=== PATIENT | male | born 1950 | race Caucasian/White ===

== ENCOUNTER → 2017-05-13 | Outpatient (CLI) | payer OTHER ==
[~2017-05-13] MED LIST: ACTOS15 MG PO; ACTOS45 MG PO; AMARYL4 MG PO; AMLODIPINE-ATO1 EAC1 PO; ASPIRIN81 M1 PO; AZOR 10/40 M1 TABLET PO; AZOR 5/20 MG1 TABLET PO; BYDUREON P2 MG/0.65 SC; COLCHICINE0.6 M1 PO; CRESTOR10 MG PO; CRESTOR5 MG PO; ERGOCALCIF50000 UNIT PO; FUROSEMIDE40 MG PO; IRON160 M1 PO; IRON18 MG PO; IRON325 M1 PO; JANUMET 50/11 TABLET PO; LOPRESSOR25 MG PO; LOPRESSOR50 MG PO; LOVAZA1 GM PO; METFORMIN HCL1000 MG PO; NIACIN500 M1 PO; PROTONIX40 MG PO; SUCRALFATE1 GM PO; TOPROL XL50 MG PO; TRAMADOL HCL50 MG PO; ULORIC40 MG PO; ULORIC80 MG PO; VITAMIN D31000 UNI1 PO; VITAMIN D50000 UNI4 PO
[2017-05-13 09:25] LABS: EOSINOPHIL (%) 2.2 % (0-5); EOSINOPHIL COUNT 0.1 K/uL (0-0.3); HEMATOCRIT 27.4 % (38.0-50.0); IMMATURE GRANULOCYTE (%) 0.4 % (0.0-0.7); INSTRUMENT ABS NEUTROPHIL CT 3.1 K/uL; LYMPHOCYTE COUNT 0.6 K/uL (1.0-2.8); MCH 27.9 PG (29.0-34.0); MCHC 29.6 G/DL (30.0-36.0); MCV 94.5 FL (86-99); MEAN PLAT.VOLUME 10.3 uM^3 (9.0-12.4); MONOCYTE (%) 12.6 % (3-12); MONOCYTE COUNT 0.6 K/uL (0-0.8); NEUTROPHIL (%) 70.3 % (45-76); NEUTROPHIL COUNT 3.1 K/uL (1.8-6.4); PLATELET COUNT 206 K/uL (156-360); RBC DIS.WIDTH-CV 13.8 % (11.8-14.6); RBC DIS.WIDTH-SD 47.6 % (39-53); WHITE BLOOD COUNT 4.5 K/uL (4.1-10.2)
[2017-05-13 09:32] LABS: INTER. NORMALIZED RATIO 1.1; PROTHROMBIN TIME 12.9 SEC (10.2-12.9)
[2017-05-13 09:35] LABS: PTT 29.9 SEC (25-37)
[2017-05-13 09:44] LABS: POINT-OF-CARE METER ID UU14174212
[2017-05-15 16:21] LABS: CLINICAL INFORMATION ANEMIA; NUMBER OF MARKERS 22; SPECIMEN VIABILITY 98
== END | disposition home or self-care (01) ==
LOC: OPR 08:47 → EDSTATUS 09:00
PROVIDERS: Internal Medicine Hematology & Oncology
PROC: 07DR3ZX Extraction of Iliac Bone Marrow, Percutaneous Approach, Diagnostic (ICD-10-PCS; principal; 2017-05-13)
DX: D64.9 Anemia, unspecified (principal); E11.9 Type 2 diabetes mellitus without complications; I10 Essential (primary) hypertension; G47.33 Obstructive sleep apnea (adult) (pediatric); I25.10 Atherosclerotic heart disease of native coronary artery without angina pectoris; Z95.5 Presence of coronary angioplasty implant and graft; Z80.0 Family history of malignant neoplasm of digestive organs; Z87.891 Personal history of nicotine dependence; M10.9 Gout, unspecified
CPT/HCPCS: 77012; 82948; 85025; 85610; 85730; J3010

== ENCOUNTER 2017-07-17 05:24 | Inpatient (IN) | payer OTHER ==
[2017-07-17] VITALS (9 sets, daily range): BP systolic 11–148; BP diastolic 48–82
[~2017-07-17] VITALS: Ht 177.8 cm; Wt 156.0 kg
[~2017-07-17 05:24] MED LIST changes: +AMARYL2 MG PO; +LISINOPRIL40 MG PO
[2017-07-17 05:55] LABS: BASE EXCESS 1.7 mEq/L (-3 to +3); BICARBONATE 27.6 mEq/L (22-26); CARBOXY HGB 2.3 % (0-5); COMMENTS - BLOOD GASES C+A+; DEVICE NIV; FI02 60 %; METHEMOGLOBIN 0.7 % (0-1.5); MODE SPONT; PCO2 50 mm Hg (35-45); PO2 135 mm Hg (80-100); SITE LR; TOTAL RESP RATE 22 resp/min; pH 7.35 (7.35-7.45)
[2017-07-17 05:56] LABS: PEEP 7 CM/H20; PRES. SUPPORT 10 CM/H2O
[2017-07-17 06:11] LABS: CARBON DIOXIDE (BICARBONATE) 28.5 MEQ/L (20-31)
[2017-07-17 06:17] LABS: HEMATOCRIT 22.1 % (38.0-50.0); MCH 27.4 PG (29.0-34.0); MCHC 28.5 G/DL (30.0-36.0); MCV 96.1 FL (86-99); PLATELET COUNT 202 K/uL (156-360); RBC DIS.WIDTH-CV 15.1 % (11.8-14.6); RBC DIS.WIDTH-SD 52.3 % (39-53); WHITE BLOOD COUNT 6.2 K/uL (4.1-10.2)
[2017-07-17 06:20] LABS: HEMOGLOBIN 6.3 G/DL (12.5-16.6)
[2017-07-17 06:23] LABS: CHLORIDE 106 mEq/L (99-109); POTASSIUM 4.8 mEq/L (3.7-5.4); SODIUM 140 mEq/L (136-147)
[2017-07-17 06:25] LABS: GLUCOSE 208 mg/dL (70-99)
[2017-07-17 06:29] LABS: CREATININE 1.6 mg/dL (0.6-1.3); GFR ESTIMATE (CALCULATED) 46 mL/min/ (58.99-99999)
[2017-07-17 06:31] LABS: UREA NITROGEN (BUN) 31 mg/dL (9-23)
[2017-07-17 06:49] LABS: TROP-I INTERPRETATION NEGATIVE; TROPONIN-I 0.18 ng/mL (0.0-0.30)
[2017-07-17] MEDS ORDERED: IRON325 M1 PO (08:47)
[2017-07-17] MEDS ORDERED: ZYLOPRIM100 MG PO (08:49)
[2017-07-17] MEDS ORDERED: AMLODIPINE-OLM1 EACH PO (08:51)
[2017-07-17 13:03] LABS: TROP-I INTERPRETATION POSITIVE; TROPONIN-I 0.73 ng/mL (0.0-0.30)
[2017-07-17 20:11] LABS: TROP-I INTERPRETATION INDETERMINATE; TROPONIN-I 0.41 ng/mL (0.0-0.30)
[2017-07-18 00:15] VITALS: BP 144/69
[2017-07-18 04:30] VITALS: BP 118/58
[2017-07-18 05:42] LABS: HEMATOCRIT 26.8 % (38.0-50.0); HEMOGLOBIN 7.8 G/DL (12.5-16.6); MCH 27.2 PG (29.0-34.0); MCHC 29.1 G/DL (30.0-36.0); MCV 93.4 FL (86-99); PLATELET COUNT 243 K/uL (156-360); RBC DIS.WIDTH-CV 14.8 % (11.8-14.6); RBC DIS.WIDTH-SD 50.6 % (39-53)
[2017-07-18 05:59] LABS: RED BLOOD COUNT 2.87 M/uL (4.00-5.50)
[2017-07-18 06:31] LABS: CHLORIDE 99 MEQ/L (99-109); CREATININE 1.6 MG/DL (0.6-1.3); GFR ESTIMATE (CALCULATED) 46 mL/min/ (58.99-99999); GLUCOSE 274 mg/dL (70-99); POTASSIUM 4.7 MEQ/L (3.7-5.4); SODIUM 137 MEQ/L (136-147); UREA NITROGEN (BUN) 33 mg/dL (9-23)
[2017-07-18 08:21] VITALS: BP 156/80
[2017-07-18 15:20] VITALS: BP 124/58
[2017-07-18 17:21] LABS: HEMATOCRIT 27.6 % (38.0-50.0); HEMOGLOBIN 8.1 G/DL (12.5-16.6); MCV 93.6 FL (86-99)
[2017-07-18 19:47] VITALS: BP 139/65
[2017-07-18 23:30] VITALS: BP 133/52
[2017-07-19 04:44] VITALS: BP 137/75
[2017-07-19 08:20] VITALS: BP 166/95
[2017-07-19 09:13] LABS: HEMATOCRIT 30.8 % (38.0-50.0); MCH 27.5 PG (29.0-34.0); MCHC 29.2 G/DL (30.0-36.0); MCV 94.2 FL (86-99); PLATELET COUNT 293 K/uL (156-360); RBC DIS.WIDTH-SD 50.8 % (39-53); RED BLOOD COUNT 3.27 M/uL (4.00-5.50); WHITE BLOOD COUNT 11.7 K/uL (4.1-10.2)
[2017-07-19 09:39] LABS: CHLORIDE 97 MEQ/L (99-109); CREATININE 1.4 MG/DL (0.6-1.3); GFR ESTIMATE (CALCULATED) 54 mL/min/ (58.99-99999); GLUCOSE 255 mg/dL (70-99); POTASSIUM 4.7 MEQ/L (3.7-5.4); SODIUM 136 MEQ/L (136-147); UREA NITROGEN (BUN) 46 mg/dL (9-23)
[2017-07-19 11:11] VITALS: BP 138/64
[2017-07-19 16:15] VITALS: BP 173/82
[2017-07-19 19:13] VITALS: BP 147/65
[2017-07-19 23:46] VITALS: BP 138/75
[2017-07-20 04:09] VITALS: BP 141/75
[2017-07-20 08:30] VITALS: BP 165/77
[2017-07-20 09:55] LABS: HEMATOCRIT 30.3 % (38.0-50.0); MCH 27.2 PG (29.0-34.0); MCHC 29.7 G/DL (30.0-36.0); MCV 91.5 FL (86-99); PLATELET COUNT 262 K/uL (156-360); RBC DIS.WIDTH-CV 14.4 % (11.8-14.6); RED BLOOD COUNT 3.31 M/uL (4.00-5.50); WHITE BLOOD COUNT 8.1 K/uL (4.1-10.2)
[2017-07-20 10:31] LABS: CHLORIDE 97 MEQ/L (99-109); CREATININE 1.2 MG/DL (0.6-1.3); GFR ESTIMATE (CALCULATED) > 59 mL/min/ (58.99-99999); GLUCOSE 227 mg/dL (70-99); POTASSIUM 4.4 MEQ/L (3.7-5.4); SODIUM 137 MEQ/L (136-147); UREA NITROGEN (BUN) 42 mg/dL (9-23)
[2017-07-20 12:04] VITALS: BP 158/86
[2017-07-20 12:33] LABS: HEMOGLOBIN A1c (GLYCOHEMOGLOB) 5.1 % (Below 5.7)
[2017-07-20] MEDS ORDERED: FUROSEMIDE40 MG PO (13:54)
[2017-07-20] MEDS ORDERED: LEVEMIR FL100 UNIT/1 SC ×2 (13:54→15:09)
[2017-07-20] MEDS ORDERED: DUONEB 2.5-0.5 M3 ML AEROSOL (13:54)
[2017-07-20] MEDS ORDERED: PREDNISONE10 MG PO (13:54)
[2017-07-20] MEDS ORDERED: LEVOFLOXACIN750 MG PO (13:54)
[2017-07-20] MEDS ORDERED: SPIRIVA1 INHALATI IH (13:54)
== END 2017-07-20 18:47 | disposition home or self-care (01) | DRG 189 ==
LOC: EME → EDBD 05:24 → EDOF 08:07 → 4EAST 08:07 → ENRESERV 08:08 → 4EAST 12:14 → ENRESERV 07-18 11:45 → CANRESERV 07-18 11:45 → ENPENDDIS 07-20 → 4EAST 07-20 18:47
PROVIDERS: Emergency Medicine; Internal Medicine
DX: J96.01 Acute respiratory failure with hypoxia (principal); J44.1 Chronic obstructive pulmonary disease with (acute) exacerbation; J44.0 Chronic obstructive pulmonary disease with (acute) lower respiratory infection; J20.9 Acute bronchitis, unspecified; I21.4 Non-ST elevation (NSTEMI) myocardial infarction; I11.0 Hypertensive heart disease with heart failure; I50.33 Acute on chronic diastolic (congestive) heart failure; K55.21 Angiodysplasia of colon with hemorrhage; D62 Acute posthemorrhagic anemia; Z99.81 Dependence on supplemental oxygen; E66.01 Morbid (severe) obesity due to excess calories; Z68.42 Body mass index [BMI] 45.0-49.9, adult; K22.10 Ulcer of esophagus without bleeding; D50.0 Iron deficiency anemia secondary to blood loss (chronic); K29.60 Other gastritis without bleeding; K31.819 Angiodysplasia of stomach and duodenum without bleeding; I35.0 Nonrheumatic aortic (valve) stenosis; G47.33 Obstructive sleep apnea (adult) (pediatric); I25.10 Atherosclerotic heart disease of native coronary artery without angina pectoris; E11.9 Type 2 diabetes mellitus without complications; E78.5 Hyperlipidemia, unspecified; M10.9 Gout, unspecified; Z80.0 Family history of malignant neoplasm of digestive organs; Z87.891 Personal history of nicotine dependence; Z95.1 Presence of aortocoronary bypass graft; Z95.5 Presence of coronary angioplasty implant and graft
CPT/HCPCS: 36600; 71045; 80048; 82803; 82948; 83036; 83605; 83880; 84484; 85014; 85018; 85027; 86850; 86900; 86901; 86920; 87040; 87070; 87205; 93005; 93306; 94002; 94640; 94640 76; 94660; 94760; 94799; 99202; 99281; 99285; J1100; J1644; J1815; J1940; J1956; J2930; J7512; J7644; P9016

== ENCOUNTER 2017-09-06 14:14 | Inpatient (IN) | payer OTHER ==
[~2017-09-06] VITALS: Ht 177.8 cm; Wt 150.1 kg
[~2017-09-06 14:14] MED LIST changes: +AMLODIPINE-OLM1 EACH PO; +DUONEB 2.5-0.5 M3 ML AEROSOL; +LEVEMIR FL100 UNIT/1 SC; +LEVOFLOXACIN750 MG PO; +PREDNISONE10 MG PO; +SPIRIVA1 INHALATI IH; +ZYLOPRIM100 MG PO
[2017-09-06 14:59] LABS: CHLORIDE 104 mEq/L (99-109); POTASSIUM 4.4 mEq/L (3.7-5.4); SODIUM 138 mEq/L (136-147)
[2017-09-06 15:00] LABS: GLUCOSE 172 mg/dL (70-99)
[2017-09-06 15:04] LABS: CREATININE 1.4 mg/dL (0.6-1.3); GFR ESTIMATE (CALCULATED) 54 mL/min/ (58.99-99999)
[2017-09-06 15:05] LABS: UREA NITROGEN (BUN) 34 mg/dL (9-23)
[2017-09-06 16:35] LABS: HEMATOCRIT 18.4 % (38.0-50.0); MCH 25.3 PG (29.0-34.0); MCHC 29.9 G/DL (30.0-36.0); MCV 84.8 FL (86-99); PLATELET COUNT 216 K/uL (156-360); RBC DIS.WIDTH-CV 15.3 % (11.8-14.6); RED BLOOD COUNT 2.17 M/uL (4.00-5.50); WHITE BLOOD COUNT 4.4 K/uL (4.1-10.2)
[2017-09-06 16:36] LABS: HEMOGLOBIN 5.5 G/DL (12.5-16.6)
[2017-09-06] MEDS ORDERED: LASIX40 MG PO (18:05)
[2017-09-06] MEDS ORDERED: LOPRESSOR25 MG PO (18:06)
[2017-09-06] MEDS ORDERED: AZOR 5/20 MG1 TABLET PO (18:08)
[2017-09-06] MEDS ORDERED: ALLOPURINOL100 MG PO (18:10)
[2017-09-06] MEDS ORDERED: SPIRIVA18 MCG IH (18:11)
[2017-09-06] MEDS ORDERED: LEVEMIR FL100 UNIT/1 SC ×2 (18:14→18:15)
[2017-09-06 21:43] VITALS: BP 139/69
[2017-09-06] MEDS ORDERED: VITAMIN B-121000 MC4 SL (23:15)
[2017-09-07] VITALS (11 sets, daily range): BP systolic 107–139; BP diastolic 50–73
[2017-09-07 06:10] LABS: HEMATOCRIT 20.1 % (38.0-50.0); MCH 26.4 PG (29.0-34.0); MCHC 30.3 G/DL (30.0-36.0); PLATELET COUNT 184 K/uL (156-360); RBC DIS.WIDTH-CV 15.5 % (11.8-14.6); RBC DIS.WIDTH-SD 49.4 % (39-53); RED BLOOD COUNT 2.31 M/uL (4.00-5.50); WHITE BLOOD COUNT 4.1 K/uL (4.1-10.2)
[2017-09-07 06:12] LABS: HEMOGLOBIN 6.1 G/DL (12.5-16.6)
[2017-09-07 09:20] LABS: ALBUMIN 3.5 G/DL (3.2-4.8); ALKALINE PHOSPHATASE 48 IU/L (3-129); ALT (GPT) 11 IU/L (3-49); AST (GOT) 20 IU/L (2-34); CHLORIDE 106 MEQ/L (99-109); CREATININE 1.2 MG/DL (0.6-1.3); GFR ESTIMATE (CALCULATED) > 59 mL/min/ (58.99-99999); GLUCOSE 124 mg/dL (70-99); POTASSIUM 4.3 MEQ/L (3.7-5.4); SODIUM 141 MEQ/L (136-147); TOTAL BILIRUBIN 0.7 MG/DL (0.0-1.0); TOTAL PROTEIN 5.4 G/DL (6.4-8.3); UREA NITROGEN (BUN) 31 mg/dL (9-23)
[2017-09-07 10:19] LABS: TROP-I INTERPRETATION NEGATIVE; TROPONIN-I 0.13 ng/mL (0.0-0.30)
[2017-09-07 21:04] LABS: HEMATOCRIT 26.8 % (38.0-50.0); HEMOGLOBIN 8.2 G/DL (12.5-16.6); MCV 86.2 FL (86-99)
[2017-09-08] VITALS (9 sets, daily range): BP systolic 117–139; BP diastolic 56–67
[2017-09-08 03:36] LABS: BASOPHIL (%) 0.6 % (0-1); EOSINOPHIL (%) 2.9 % (0-5); EOSINOPHIL COUNT 0.2 K/uL (0-0.3); HEMATOCRIT 27.9 % (38.0-50.0); HEMOGLOBIN 8.7 G/DL (12.5-16.6); IMMATURE GRANULOCYTE (%) 0.2 % (0.0-0.7); LYMPHOCYTE (%) 10.4 % (15-42); LYMPHOCYTE COUNT 0.5 K/uL (1.0-2.8); MCH 26.7 PG (29.0-34.0); MCHC 31.2 G/DL (30.0-36.0); MCV 85.6 FL (86-99); MONOCYTE (%) 15.2 % (3-12); MONOCYTE COUNT 0.8 K/uL (0-0.8); NEUTROPHIL (%) 70.7 % (45-76); NEUTROPHIL COUNT 3.7 K/uL (1.8-6.4); PLATELET COUNT 198 K/uL (156-360); RBC DIS.WIDTH-SD 47.1 % (39-53); WHITE BLOOD COUNT 5.2 K/uL (4.1-10.2)
[2017-09-08 03:44] LABS: RED BLOOD COUNT 3.26 M/uL (4.00-5.50)
[2017-09-08 03:46] LABS: CHLORIDE 105 mEq/L (99-109); POTASSIUM 4.4 mEq/L (3.7-5.4); SODIUM 141 mEq/L (136-147)
[2017-09-08 03:47] LABS: GLUCOSE 102 mg/dL (70-99)
[2017-09-08 03:51] LABS: CREATININE 1.2 mg/dL (0.6-1.3); GFR ESTIMATE (CALCULATED) > 59 mL/min/ (58.99-99999)
[2017-09-08 03:52] LABS: UREA NITROGEN (BUN) 26 mg/dL (9-23)
[2017-09-09 00:50] LABS: HEMATOCRIT 31.2 % (38.0-50.0); HEMOGLOBIN 9.7 G/DL (12.5-16.6)
[2017-09-09 00:58] LABS: CHLORIDE 103 mEq/L (99-109); POTASSIUM 4.1 mEq/L (3.7-5.4); SODIUM 139 mEq/L (136-147)
[2017-09-09 00:59] LABS: MAGNESIUM 1.7 mg/dL (1.3-2.7)
[2017-09-09 01:00] LABS: GLUCOSE 75 mg/dL (70-99)
[2017-09-09 01:04] LABS: CREATININE 1.2 mg/dL (0.6-1.3); GFR ESTIMATE (CALCULATED) > 59 mL/min/ (58.99-99999); PHOSPHORUS 4.9 mg/dL (2.5-4.9)
[2017-09-09 01:05] LABS: UREA NITROGEN (BUN) 20 mg/dL (9-23)
[2017-09-09 03:46] VITALS: BP 116/58
[2017-09-09 06:21] LABS: HEMATOCRIT 28.8 % (38.0-50.0); HEMOGLOBIN 8.8 G/DL (12.5-16.6); MCH 26.7 PG (29.0-34.0); MCHC 30.6 G/DL (30.0-36.0); MCV 87.3 FL (86-99); PLATELET COUNT 191 K/uL (156-360); RBC DIS.WIDTH-CV 15.4 % (11.8-14.6); RBC DIS.WIDTH-SD 49.2 % (39-53); WHITE BLOOD COUNT 4.7 K/uL (4.1-10.2)
[2017-09-09 07:08] VITALS: BP 124/67
[2017-09-09] MEDS ORDERED: FLUCONAZOLE100 MG PO (11:06)
== END 2017-09-09 13:12 | disposition home or self-care (01) | DRG 812 ==
LOC: EME 14:14 → EDOF 19:54 → 5SOUTH 19:54 → ENRESERV 19:55 → 5SOUTH 21:04
PROVIDERS: Emergency Medicine; Hospitalist; Physician Assistant; Specialist
PROC: 30233N1 Transfusion of Nonautologous Red Blood Cells into Peripheral Vein, Percutaneous Approach (ICD-10-PCS; principal; 2017-09-06)
PROC: 5A09357 Assistance with Respiratory Ventilation, Less than 24 Consecutive Hours, Continuous Positive Airway Pressure (ICD-10-PCS; 2017-09-07)
PROC: 0D568ZZ Destruction of Stomach, Via Natural or Artificial Opening Endoscopic (ICD-10-PCS; 2017-09-08)
DX: D64.9 Anemia, unspecified (principal); I10 Essential (primary) hypertension; E78.5 Hyperlipidemia, unspecified; E11.9 Type 2 diabetes mellitus without complications; M10.9 Gout, unspecified; G47.33 Obstructive sleep apnea (adult) (pediatric); E66.9 Obesity, unspecified; I35.0 Nonrheumatic aortic (valve) stenosis; K31.819 Angiodysplasia of stomach and duodenum without bleeding; K55.20 Angiodysplasia of colon without hemorrhage; I25.2 Old myocardial infarction; Z68.42 Body mass index [BMI] 45.0-49.9, adult; B37.81 Candidal esophagitis; K25.9 Gastric ulcer, unspecified as acute or chronic, without hemorrhage or perforation; J44.9 Chronic obstructive pulmonary disease, unspecified
CPT/HCPCS: 36415; 80048; 80048 91; 80053; 82948; 83010 90; 83615; 83735; 84100; 84484; 85014; 85018; 85025; 85025 91; 85027; 85027 GA; 85046; 86850; 86880; 86900; 86901; 86920; 93005; 94640; 94640 76; 94660; 99281; 99285; J0330; J1815; J1940; J2405; J3010; P9016

== ENCOUNTER 2018-01-06 00:37 | Inpatient (IN) | payer OTHER ==
[~2018-01-06] VITALS: Ht 177.8 cm; Wt 141.7 kg
[2018-01-06] VITALS (15 sets, daily range): BP systolic 101–133; BP diastolic 56–69
[~2018-01-06 00:37] MED LIST changes: +ALLOPURINOL100 MG PO; +FLUCONAZOLE100 MG PO; +GLUCOPHAGE XR,500 MG PO; +LASIX40 MG PO; +MICRONASE2.5 MG PO; +NORVASC5 MG PO; +SPIRIVA RESPIMAT4 GM IH; +VASCEPA1 GM PO; +VITAMIN B-121000 MC4 SL; -ZYLOPRIM100 MG PO
[2018-01-06] MEDS ORDERED: ACTOS45 MG PO (01:02)
[2018-01-06] MEDS ORDERED: AZOR 5/20 MG1 TABLET PO (01:03)
[2018-01-06] MEDS ORDERED: FENOFIBRATE160 M1 PO (01:03)
[2018-01-06] MEDS ORDERED: AMARYL2 MG PO (01:03)
[2018-01-06] MEDS ORDERED: ALBUTEROL2.5 MG/3 M IH (01:04)
[2018-01-06] MEDS ORDERED: IRON325 M1 PO (01:05)
[2018-01-06 01:39] LABS: COMMENTS - BLOOD GASES C+; DEVICE VENT; SITE RR
[2018-01-06 01:40] LABS: FI02 50 %; MODE SPONT; PCO2 39 mm Hg (35-45); PEEP 5 CM/H20; PO2 114 mm Hg (80-100); PRES. SUPPORT 8 CM/H2O; pH 7.39 (7.35-7.45)
[2018-01-06 01:41] LABS: BICARBONATE 23.6 mEq/L (22-26); CARBOXY HGB 2.8 % (0-5); METHEMOGLOBIN 0.4 % (0-1.5); O2 SATURATION (CALCULATED) 99.6 % (95-99)
[2018-01-06 01:42] LABS: BASE EXCESS -1.2 mEq/L (-3 to +3)
[2018-01-06 02:14] LABS: HEMATOCRIT 20.4 % (38.0-50.0); HEMOGLOBIN 6.1 G/DL (12.5-16.6); MCHC 29.9 G/DL (30.0-36.0); MCV 93.6 FL (86-99); PLATELET COUNT 231 K/uL (156-360); RBC DIS.WIDTH-CV 20.6 % (11.8-14.6); RBC DIS.WIDTH-SD 69.7 % (39-53); RED BLOOD COUNT 2.18 M/uL (4.00-5.50); WHITE BLOOD COUNT 6.7 K/uL (4.1-10.2)
[2018-01-06 02:36] LABS: TROP-I INTERPRETATION POSITIVE; TROPONIN-I 0.85 ng/mL (0.0-0.30)
[2018-01-06 02:38] LABS: ALBUMIN 3.9 G/DL (3.2-4.8); ALKALINE PHOSPHATASE 64 IU/L (3-129); ALT (GPT) 12 IU/L (3-49); AST (GOT) 26 IU/L (2-34); CHLORIDE 104 MEQ/L (99-109); CREATININE 1.6 MG/DL (0.6-1.3); GFR ESTIMATE (CALCULATED) 46 mL/min/ (58.99-99999); GLUCOSE 258 mg/dL (70-99); POTASSIUM 4.6 MEQ/L (3.7-5.4); SODIUM 138 MEQ/L (136-147); TOTAL BILIRUBIN 0.8 MG/DL (0.0-1.0); TOTAL PROTEIN 6.5 G/DL (6.4-8.3); UREA NITROGEN (BUN) 29 mg/dL (9-23)
[2018-01-06 02:39] LABS: COMMENT A; LIPASE 88 U/L (1.0-51.0)
[2018-01-06 06:12] LABS: CHLORIDE 103 MEQ/L (99-109); CREATININE 1.4 MG/DL (0.6-1.3); GFR ESTIMATE (CALCULATED) 53 mL/min/ (58.99-99999); GLUCOSE 287 mg/dL (70-99); POTASSIUM 5.1 MEQ/L (3.7-5.4); SODIUM 137 MEQ/L (136-147); UREA NITROGEN (BUN) 32 mg/dL (9-23)
[2018-01-06 08:26] LABS: TROP-I INTERPRETATION POSITIVE; TROPONIN-I 2.22 ng/mL (0.0-0.30)
[2018-01-06 10:25] LABS: HEMATOCRIT 23.4 % (38.0-50.0); HEMOGLOBIN 6.9 G/DL (12.5-16.6); MCV 92.9 FL (86-99)
[2018-01-06 15:07] LABS: TROP-I INTERPRETATION POSITIVE; TROPONIN-I 3.66 ng/mL (0.0-0.30)
[2018-01-06 16:41] LABS: MCV 90.9 FL (86-99)
[2018-01-06 17:13] LABS: TROP-I INTERPRETATION POSITIVE; TROPONIN-I 3.85 ng/mL (0.0-0.30)
[2018-01-07] VITALS (13 sets, daily range): BP systolic 98–166; BP diastolic 56–86
[2018-01-07 03:36] LABS: BASOPHIL (%) 0.1 % (0-1); EOSINOPHIL (%) 0.1 % (0-5); HEMATOCRIT 27.1 % (38.0-50.0); HEMOGLOBIN 8.6 G/DL (12.5-16.6); IMMATURE GRANULOCYTE (%) 0.4 % (0.0-0.7); LYMPHOCYTE (%) 2.4 % (15-42); LYMPHOCYTE COUNT 0.3 K/uL (1.0-2.8); MCH 28.6 PG (29.0-34.0); MCHC 31.7 G/DL (30.0-36.0); MONOCYTE (%) 10.2 % (3-12); MONOCYTE COUNT 1.1 K/uL (0-0.8); NEUTROPHIL (%) 86.8 % (45-76); NEUTROPHIL COUNT 9.7 K/uL (1.8-6.4); PLATELET COUNT 263 K/uL (156-360); RBC DIS.WIDTH-CV 19.8 % (11.8-14.6); RBC DIS.WIDTH-SD 64.4 % (39-53); WHITE BLOOD COUNT 11.2 K/uL (4.1-10.2)
[2018-01-07 03:43] LABS: RED BLOOD COUNT 3.01 M/uL (4.00-5.50)
[2018-01-07 03:58] LABS: TROP-I INTERPRETATION POSITIVE
[2018-01-07 04:02] LABS: TROPONIN-I 3.68 ng/mL (0.0-0.30)
[2018-01-07 09:09] LABS: CHLORIDE 103 mEq/L (99-109); POTASSIUM 4.8 mEq/L (3.7-5.4); SODIUM 138 mEq/L (136-147)
[2018-01-07 09:11] LABS: GLUCOSE 214 mg/dL (70-99)
[2018-01-07 09:15] LABS: CREATININE 1.5 mg/dL (0.6-1.3); GFR ESTIMATE (CALCULATED) 49 mL/min/ (58.99-99999)
[2018-01-07 09:16] LABS: UREA NITROGEN (BUN) 39 mg/dL (9-23)
[2018-01-07 10:13] LABS: CARBOXY HGB 2.8 % (0-5); METHEMOGLOBIN 0.7 % (0-1.5); PCO2 41 mm Hg (35-45); PO2 48 mm Hg (80-100)
[2018-01-07 10:14] LABS: BASE EXCESS 0.5 mEq/L (-3 to +3); BICARBONATE 25.4 mEq/L (22-26); DEVICE HFNC; O2 FLOW 6 L/MIN; SITE LR
[2018-01-07 10:15] LABS: COMMENTS - BLOOD GASES A+C+
[2018-01-07 18:05] LABS: HEMATOCRIT 28.9 % (38.0-50.0); HEMOGLOBIN 8.9 G/DL (12.5-16.6)
[2018-01-08 03:41] VITALS: BP 137/78
[2018-01-08 05:38] LABS: BASOPHIL (%) 0 % (0-1); EOSINOPHIL (%) 0 % (0-5); HEMATOCRIT 27.3 % (38.0-50.0); HEMOGLOBIN 8.3 G/DL (12.5-16.6); IMMATURE GRANULOCYTE (%) 0.5 % (0.0-0.7); LYMPHOCYTE (%) 2.6 % (15-42); LYMPHOCYTE COUNT 0.2 K/uL (1.0-2.8); MCH 27.2 PG (29.0-34.0); MCHC 30.4 G/DL (30.0-36.0); MCV 89.5 FL (86-99); MONOCYTE (%) 2.4 % (3-12); MONOCYTE COUNT 0.2 K/uL (0-0.8); NEUTROPHIL (%) 94.5 % (45-76); NEUTROPHIL COUNT 5.8 K/uL (1.8-6.4); PLATELET COUNT 209 K/uL (156-360); RBC DIS.WIDTH-CV 18.5 % (11.8-14.6); RBC DIS.WIDTH-SD 61.6 % (39-53); RED BLOOD COUNT 3.05 M/uL (4.00-5.50); WHITE BLOOD COUNT 6.2 K/uL (4.1-10.2)
[2018-01-08 06:03] LABS: CHLORIDE 99 MEQ/L (99-109); CREATININE 1.4 MG/DL (0.6-1.3); GFR ESTIMATE (CALCULATED) 53 mL/min/ (58.99-99999); POTASSIUM 5.1 MEQ/L (3.7-5.4); SODIUM 137 MEQ/L (136-147); UREA NITROGEN (BUN) 42 mg/dL (9-23)
[2018-01-08 06:18] LABS: GLUCOSE 374 mg/dL (70-99)
[2018-01-08 08:11] VITALS: BP 140/67
[2018-01-08 11:28] VITALS: BP 131/61
[2018-01-08 20:08] VITALS: BP 115/56
[2018-01-08 21:07] VITALS: BP 128/56
[2018-01-08 23:40] VITALS: BP 133/64
[2018-01-09 04:05] VITALS: BP 120/56
[2018-01-09 05:29] LABS: HEMATOCRIT 26.5 % (38.0-50.0); HEMOGLOBIN 8.1 G/DL (12.5-16.6); MCH 27.5 PG (29.0-34.0); MCHC 30.6 G/DL (30.0-36.0); MCV 89.8 FL (86-99); PLATELET COUNT 226 K/uL (156-360); RBC DIS.WIDTH-CV 18.1 % (11.8-14.6); RBC DIS.WIDTH-SD 60.1 % (39-53); RED BLOOD COUNT 2.95 M/uL (4.00-5.50); WHITE BLOOD COUNT 7.5 K/uL (4.1-10.2)
[2018-01-09 07:51] VITALS: BP 119/69
[2018-01-09 11:25] VITALS: BP 119/67
[2018-01-09 15:37] VITALS: BP 149/69
[2018-01-09 20:38] VITALS: BP 136/64
[2018-01-09 23:44] VITALS: BP 145/66
[2018-01-10 03:35] VITALS: BP 122/58
[2018-01-10 07:12] VITALS: BP 134/60
[2018-01-10 11:17] VITALS: BP 133/83
[2018-01-10] MEDS ORDERED: CRESTOR10 MG PO (12:09)
[2018-01-10] MEDS ORDERED: PROTONIX40 MG PO (12:15)
[2018-01-10] MEDS ORDERED: PREDNISONE5 MG PO (12:17)
[2018-01-10] MEDS ORDERED: LOPRESSOR25 MG PO (12:20)
[2018-01-31] MEDS ORDERED: AMLODIPINE-BEN1 EAC3 PO (14:37)
[2018-01-31] MEDS ORDERED: PROTONIX40 MG PO (14:39)
[2018-01-31] MEDS ORDERED: CRESTOR10 MG PO (15:13)
== END 2018-01-10 14:23 | disposition home or self-care (01) | DRG 280 ==
LOC: EME 00:37 → EDOF 02:47 → 4EAST 02:47 → ENRESERV 02:49 → 4EAST 04:31 → ENPENDDIS 01-10 → 4EAST 01-10 14:23
PROVIDERS: Emergency Medicine; Hospitalist; Internal Medicine; Internal Medicine Cardiovascular Disease; Internal Medicine Gastroenterology
DX: I21.4 Non-ST elevation (NSTEMI) myocardial infarction (principal); J96.01 Acute respiratory failure with hypoxia; J44.1 Chronic obstructive pulmonary disease with (acute) exacerbation; N17.9 Acute kidney failure, unspecified; J81.0 Acute pulmonary edema; D62 Acute posthemorrhagic anemia; I95.9 Hypotension, unspecified; K55.21 Angiodysplasia of colon with hemorrhage; I12.9 Hypertensive chronic kidney disease with stage 1 through stage 4 chronic kidney disease, or unspecified chronic kidney disease; N18.3 Chronic kidney disease, stage 3 (moderate); E11.22 Type 2 diabetes mellitus with diabetic chronic kidney disease; I25.10 Atherosclerotic heart disease of native coronary artery without angina pectoris; I35.0 Nonrheumatic aortic (valve) stenosis; E66.01 Morbid (severe) obesity due to excess calories; Z68.42 Body mass index [BMI] 45.0-49.9, adult; I25.2 Old myocardial infarction; Z95.5 Presence of coronary angioplasty implant and graft; G47.33 Obstructive sleep apnea (adult) (pediatric); I45.10 Unspecified right bundle-branch block; E78.5 Hyperlipidemia, unspecified; K21.9 Gastro-esophageal reflux disease without esophagitis; M10.9 Gout, unspecified; R00.0 Tachycardia, unspecified; Z87.891 Personal history of nicotine dependence
CPT/HCPCS: 36600; 71045; 80048; 80048 91; 80053; 81003; 82948; 83605; 83690; 83880; 84484; 85014; 85018; 85025; 85027; 85730; 86850; 86900; 86901; 86920; 87040; 93005; 93970; 94002; 94640; 94660; 94799; 99281; 99285; C9113; J0295; J1815; J1940; J2920; J2930; J7030; J7050; J7512; P9016; S0028

== ENCOUNTER → 2018-02-02 | Outpatient (CLI) | payer OTHER ==
[~2018-02-02] VITALS: Ht 175.3 cm; Wt 148.1 kg
[~2018-02-02] MED LIST changes: +ALBUTEROL2.5 MG/3 M IH; +AMLODIPINE-BEN1 EAC3 PO; +FENOFIBRATE160 M1 PO; +PREDNISONE5 MG PO
== END | disposition home or self-care (01) ==
LOC: AMB 13:08
PROVIDERS: Specialist
DX: K55.21 Angiodysplasia of colon with hemorrhage (principal); K62.1 Rectal polyp; K63.5 Polyp of colon; K57.30 Diverticulosis of large intestine without perforation or abscess without bleeding; D50.0 Iron deficiency anemia secondary to blood loss (chronic); E11.51 Type 2 diabetes mellitus with diabetic peripheral angiopathy without gangrene; I25.10 Atherosclerotic heart disease of native coronary artery without angina pectoris; I25.2 Old myocardial infarction; Z95.5 Presence of coronary angioplasty implant and graft; E66.01 Morbid (severe) obesity due to excess calories; Z68.41 Body mass index [BMI] 40.0-44.9, adult; Z87.891 Personal history of nicotine dependence
CPT/HCPCS: 82948; 88305